=== PATIENT | female | born 1995 | race Caucasian/White ===

== ENCOUNTER 2021-05-25 12:40 | Emergency (ER) | payer OTHER ==
[~2021-05-25] VITALS: Ht 165.1 cm; Wt 75.3 kg
[2021-05-25 12:46] VITALS: BP 144/96
--- NOTE | 2021-05-25 12:46 | PHYS DOC ---
Past Medical History Past Medical History: No Pertinent History Past Surgical History: No Surgical History Smoking Status: Never Smoker Alcohol Use: Rarely Drug Use: None General Adult EDM: Chief Complaint: URINARY FREQUENCY HPI: HPI: Patient is a 25 year old female who is here with several days of dysuria, periurethral pain and irritation, itching and redness. She denies any vulvar lesions or rash. She denies pelvic or abdominal pain. She denies back or flank pain. She denies nausea or vomiting. Denies bowel habit changes. She is sexually active, and she thought that perhaps she had a reaction to a latex condom. No previous history of STI, no concern for STI at this time. Review of Systems: Review of Systems: As per HPI Heart Score: C/O Chest Pain: No Risk Factors: Risk Factors: DM, Current or recent (<one month) smoker, HTN, HLP, family history of CAD, obesity. Risk Scores: Score 0 - 3: 2.5% MACE over next 6 weeks - Discharge Home Score 4 - 6: 20.3% MACE over next 6 weeks - Admit for Clinical Observation Score 7 - 10: 72.7% MACE over next 6 weeks - Early Invasive Strategies Allergies: Allergies: Allergies Coded Allergies Type Severity Reaction Last Updated Verified Penicillins Allergy Intermediate hives 05/25/21 Yes amoxicillin Allergy Intermediate hives 05/25/21 Yes clavulanic acid Allergy Intermediate hives 05/25/21 Yes Physical Exam: PE: Constitutional: Well developed, well nourished, no acute distress, non-toxic appearance. [] HENT: Normocephalic, atraumatic Eyes: Conjunctive are normal. Neck: Trachea is midline Cardiovascular:Heart rate regular rhythm Lungs & Thorax: Bilateral breath sounds clear to auscultation [] Abdomen: Abdomen is soft, nondistended, nontender to palpation, no CVA te nderness : There is some moderate periurethral and labia minora erythema, mild swelling, no papules, no pustules, no vesicles or ulcerations are noted. No other vulvar lesions. No purulent urethral drainage or discharge. No labia majora lesions. No posterior fourchette or inferior labial lesions are noted. Skin: Warm, dry, no erythema, no rash. No vesicles, pustules, papules Back: Full range of motion Extremities: No deformity, no edema Neurologic: Alert and oriented X 3, normal motor function, normal sensory function, no focal deficits noted. [] Psychologic: Affect normal, judgement normal, mood normal. Pleasant and cooperative EKG: EKG: [] Radiology/Procedures: Radiology/Procedures: [] Course & Med Decision Making: Course & Med Decision Making Pertinent Labs and Imaging studies reviewed. (See chart for details) She has pyuria, no significant bacteria, though she has findings of likely superficial vulvovaginitis. No physical exam findings of vesicular or ulcerative or papular or pustular lesions. Will empirically treat for cystitis, as well as vaginitis. She is given dose of p.o. Diflucan here. She is given a first dose of Macrobid here. Urine cultures pending. She understands that urine culture is pending, and if there is need to change antibiotics based on this, she will be notified. She will be discharged with topical lidocaine to help with symptoms of pain and discomfort, she is already taking [id number] Azo, she does not request prescription strength for this. Return precautions are given. She verbalizes understanding. Kvng Disclaimer: Kvng Disclaimer: This electronic medical record was generated, in whole or in part, using a voice recognition dictation system. Departure Departure Impression: Primary Impression: Urinary tract infection Qualified Codes: N30.00 - Acute cystitis without hematuria Additional Impression: Yeast vaginitis Disposition: HOME / SELF CARE / HOMELESS Condition: STABLE Referrals: NO PCP (PCP) Patient Instructions: Urinary Tract Infection Additional Instructions: Take the full course of antibiotics. You may repeat the dose of Diflucan in 1 week if you still have some itching or burning or redness. Return to the ER immediately for more severe pain, more severe redness or swelling, if you notice any severe abdominal pain, flank pain, pelvic pain, temperature 100.4 or higher, uncontrolled vomiting or any other concerns. Your urine culture is pending, you should be notified of any need to change antibiotics based on your urine culture result, which take about 48 hours. Follow-up with your primary care doctor Scripts Fluconazole (DIFLUCAN) 150 Mg Tablet 1 TAB PO ONCE, #1 TAB 0 Refills take in one week from today for persistent symptoms Prov: ROBBY SERRANO DO 05/25/21 Lidocaine Hcl (LIDOCAINE HCL) 5 Ml Jel..ml. 1 ANTOINE TP BID for pain, #30 ML 0 Refills apply to affected area as needed for pain Prov: ROBBY SERRANO DO 05/25/21 Nitrofurantoin Monohyd/M-Cryst (MACROBID 100 MG CAPSULE) 100 Mg Capsule 1 CAP PO BID for 7 Days, #14 CAP 0 Refills Prov: ROBBY SERRANO DO 05/25/21 ROBBY SERRANO DO May 25, 2021 12:46
[2021-05-25 13:29] LABS: BACTERIA,URINE 0 /HPF (0-FEW); RBC,URINE 0 /HPF (0-2)
[2021-05-25] MEDS ORDERED: LIDO5JEL3 TP (13:51)
[2021-05-25] MEDS ORDERED: NITR100C62 PO (13:51)
[2021-05-25] MEDS ORDERED: FLUC150T PO (13:51)
[2021-05-25] MEDS ORDERED: NITROFURANTOIN MONOHYD/M-CRYST 100 MG CAPSULE. PO ONE (14:00)
[2021-05-25] MEDS ORDERED: FLUCONAZOLE 100 MG TABLET. PO ONE (14:00)
== END 2021-05-25 14:00 | disposition home or self-care (01) ==
LOC: ER 12:40
DX: N30.00 Acute cystitis without hematuria (principal); B37.3 Candidiasis of vulva and vagina; Z88.0 Allergy status to penicillin; Z88.1 Allergy status to other antibiotic agents; Z88.8 Allergy status to other drugs, medicaments and biological substances
CPT/HCPCS: 81001; 81025; 87086; 87147; 99283